=== PATIENT | female | born 1990 | race Caucasian/White ===

== ENCOUNTER 2018-10-05 12:32 | Emergency (ER) | payer MEDICAID ==
[~2018-10-05] VITALS: Ht 167.6 cm; Wt 59.9 kg
[2018-10-05 12:41] VITALS: BP 123/75
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
[2018-10-05] MEDS ORDERED: ROBAXIN-750750 MG PO (14:18)
[2018-10-05] MEDS ORDERED: IBUPROFEN600 MG ORAL (14:18)
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
--- NOTE | 2018-10-05 14:41 | NUR ---
ER DISCHARGE NOTE: Patient is cleared to be discharged per ERMD, pt is aox4, on room air, with stable vital signs. pt was given dc and prescription instructions, pt was able to verbalize understanding, pt id band removed without complications. pt is able to ambulate with steady gait. pt took all belongings.
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
== END 2018-10-05 14:41 | disposition home or self-care (01) ==
LOC: EMR 14:00
DX: S09.92XA Unspecified injury of nose, initial encounter (principal); S80.02XA Contusion of left knee, initial encounter; S80.01XA Contusion of right knee, initial encounter; V49.9XXA Car occupant (driver) (passenger) injured in unspecified traffic accident, initial encounter; Y92.410 Unspecified street and highway as the place of occurrence of the external cause; M54.2 Cervicalgia
CPT/HCPCS: 81025; 99284